=== PATIENT | female | born 1995 | race American Indian/Alaskan Native ===

== ENCOUNTER 2017-08-02 18:42 | Emergency (ER) | payer MEDICAID ==
[2017-08-02 18:57] VITALS: BP 143/74; PULSE 65; TEMP 99.2; O2SAT 100
[2017-08-02 19:48] VITALS: RESP 16
[2017-08-02] MEDS ORDERED: Alum-Mag Hydrox-Simethicone Susp (30 mL) ONE (20:15)
[2017-08-02 20:33] LABS: INFLUENZA A B NEGATIVE FOR FLU A/B (NEGATIVE)
[2017-08-02] MEDS ORDERED: Alum-Mag Hydrox-Simethicone Susp (30 mL) PO STA (20:52)
--- NOTE | 2017-08-02 21:13 | C.PDOC ---
History Of Present Illness 22 year old female with a Hx of asthma presents to the ER with a complaint of cough and chest tightness for the past 5 days; associated with subjective fever , headache, and body aches. Patient was seen 3 days ago at another facility where she was given a nebulizer treatment and discharged home; however, symptoms persist. Denies recent travel, sick contact, abdominal pain, or chest pain. Time Seen by Provider: 08/02/17 19:20 Chief Complaint (Nursing): Shortness Of Breath History Per: Patient History/Exam Limitations: no limitations Onset/Duration Of Symptoms: Days Current Symptoms Are (Timing): Still Present Initiating Event: Other (not known) Associated Symptoms: Fever (Subjective), Other ((+) headache, body aches, cough , chest tightness. (-) Abdominal pain). denies: Chest Pain Reports Recently: Treated By A Physician Recent travel outside of the [place]: No Past Medical History Reviewed: Historical Data, Nursing Documentation, Vital Signs Vital Signs: Last Vital Signs Temp 99.2 F 08/02/17 18:53 Pulse 65 08/02/17 18:53 Resp 16 08/02/17 19:47 BP 143/74 08/02/17 18:53 Pulse Ox 100 08/02/17 21:12 - Medical History PMH: Asthma, Graves' Disease Family History: States: Unknown Family Hx - Social History Hx Alcohol Use: No Hx Substance Use: No - Immunization History Hx Tetanus Toxoid Vaccination: No Hx Influenza Vaccination: No Hx Pneumococcal Vaccination: No Review Of Systems Constitutional: Positive for: Fever (Subjective) Cardiovascular: Negative for: Chest Pain Respiratory: Positive for: Cough. Negative for: Wheezing Gastrointestinal: Negative for: Abdominal Pain Musculoskeletal: Positive for: Other (Body aches) Physical Exam - Physical Exam Appears: Non-toxic, No Acute Distress Skin: Normal Color, Warm, Dry Head: Atraumatic, Normacephalic Eye(s): bilateral: Normal Inspection Ear(s): Bilateral: Normal Oral Mucosa: Moist Throat: Normal, No Erythema, No Exudate Neck: Normal, Supple Chest: Symmetrical, No Tenderness Cardiovascular: Rhythm Regular Respiratory: No Rales, Rhonchi (Scattered), No Wheezing Gastrointestinal/Abdominal: Soft, No Tenderness Neurological/Psych: Oriented x3, Normal Speech ED Course And Treatment O2 Sat by Pulse Oximetry: 100 (Room air) Pulse Ox Interpretation: Normal - Radiology CXR: Interpreted by Me, Viewed By Me CXR Interpretation: Yes: No Acute Disease. No: Infiltrates Medical Decision Making Medical Decision Making: CXR, rapid strep, and flu swab ordered, results were negative. Maalox, toradol, and prednisone administered. On reevaluation, patient reports improvement of symptoms, she is resting comfortably in the ER with clear breath sounds in no acute distress. Will discharge home with Rx and instructions to follow up with PMD for further evaluation or return if symptoms worsen. Disposition - Disposition Referrals: [facility] [Outside] Disposition: HOME/ ROUTINE Disposition Time: 21:11 Condition: GOOD Additional Instructions: Follow up with the medical doctor within 1-2 days. Return if worsened. Prescriptions: Benzonatate [Tessalon Perles] 200 mg PO TID PRN #21 sgl PRN Reason: Cough Loratadine [Claritin] 10 mg PO DAILY #10 tab predniSONE [Prednisone] 20 mg PO BID #10 tab Instructions: Acute Bronchitis (ED) Forms: Layer (Tuvaluan) - Clinical Impression Clinical Impression: Bronchitis - PA / SUSPENSION CORD TIER / Resident Statement MD/DO has reviewed & agrees with the documentation as recorded. - Scribe Statement The provider has reviewed the documentation as recorded by the Scribe Enrrique Mcadams All medical record entries made by the Scribe were at my direction and personally dictated by me. I have reviewed the chart and agree that the record accurately reflects my personal performance of the history, physical exam, medical decision making, and the department course for this patient. I have also personally directed, reviewed, and agree with the discharge instructions and disposition.
--- NOTE | 2017-08-03 08:39 | RAD ---
Chest x-ray two views History: Cough. Comparison: None available. Findings: No focal infiltrate or effusion. Heart size within normal limits. Bibasilar breast and nipple shadows. Bibasilar nipple rings are noted. Degenerative changes in the spine. Impression: No focal infiltrate or effusion.
== END 2017-08-02 21:18 | disposition home or self-care (01) ==
LOC: C.ER 18:42
DX: J40 Bronchitis, not specified as acute or chronic (principal)